=== PATIENT | male | born 1965 | race Caucasian/White ===

== ENCOUNTER 2025-03-22 08:29 | Inpatient (IN) | payer OTHER ==
[2025-03-22 08:59] VITALS: BMI 20.5
[2025-03-22] MEDS ORDERED: POLYETHYLENE GLYCOL (HEALTHYLAX) 3350 17 GM PACKET PO PRN (09:11)
[2025-03-22] MEDS ORDERED: IBUPROFEN 400 MG TABLET (FP) PO PRN (09:11)
[2025-03-22] MEDS ORDERED: LOPERAMIDE HCL 2 MG CAPSULE PO PRN (09:11)
[2025-03-22] MEDS ORDERED: MAGNESIUM HYDROX 2400MG/30ML ORAL SUSPENSION 30 ML CUP PO PRN (09:11)
[2025-03-22] MEDS ORDERED: BISMUTH SUBSALICYLATE 524 MG/30 ML PO PRN (09:11)
[2025-03-22] MEDS ORDERED: METHOCARBAMOL 500 MG TABLET PO PRN (09:11)
[2025-03-22] MEDS ORDERED: hydrOXYzine PAMOATE 25 MG CAPSULE (FP) PO PRN (09:11)
[2025-03-22] MEDS ORDERED: MAG HYDROX/AL HYDROX/SIMETH 30 ML UNIT-DOSE CUP PO PRN (09:11)
[2025-03-22] MEDS ORDERED: ACETAMINOPHEN 325 MG TABLET (FP) PO PRN (09:11)
[2025-03-22] MEDS ORDERED: DICYCLOMINE HCL 10 MG CAPSULE PO PRN (09:11)
[2025-03-22] MEDS ORDERED: ONDANSETRON *ODT* 4 MG TABLET SL PRN (09:11)
[2025-03-22] MEDS ORDERED: NALOXONE (NARCAN) HCL 4 MG/0.1 ML SPRAY NS PRN (09:11)
[2025-03-22] MEDS ORDERED: BENZOCAINE/MENTHOL (CHLORASEPTIC ) LOZENGE MM PRN (09:11)
[2025-03-22] MEDS ORDERED: BENZONATATE 200 MG CAPSULE PO PRN (09:11)
[2025-03-22] MEDS ORDERED: guaiFENesin 600 MG TABLET.ER (FP) PO PRN (09:11)
[2025-03-22] MEDS ORDERED: NICOTINE 14 MG/24 HOURS TOPICAL PATCH TD ONE (10:10)
[2025-03-22] MEDS ORDERED: PRENATAL VITAMINS W/ FOLIC ACID TABLET (FP) PO ONE (10:11)
[2025-03-22] MEDS: NICOTINE 14 MG/24 HOURS TOPICAL PATCH TD SCH (10:12)
[2025-03-22] MEDS: PRENATAL VITAMINS W/ FOLIC ACID TABLET (FP) PO SCH (10:12)
[2025-03-22] MEDS: PANTOPRAZOLE 20 MG TABLET PO SCH (11:00)
[2025-03-22] MEDS: NALTREXONE HCL 50 MG TABLET PO ONE (11:31)
[2025-03-22] MEDS: IBUPROFEN 600 MG TABLET (FP) PO PRN (17:56)
[2025-03-22] MEDS: MELATONIN 5 MG TABLETS PO SCH (22:07)
[2025-03-22] MEDS: THIAMINE 100 MG TABLET PO SCH (22:08)
[2025-03-23] MEDS: NALTREXONE HCL 50 MG TABLET PO SCH (10:30)
[2025-03-23 10:46] LABS: MCHC 33.4 g/dl (32.3-36.5); MEAN CELL VOLUME 103.1 fl (79.0-92.2); MEAN PLT VOLUME 10.0 fl (9.4-12.4); RDW 14.6 % (12.2-16.1)
[2025-03-23 10:59] LABS: GLUCOSE,RANDOM 109.0 mg/dL (74-106)
[2025-03-23 11:00] LABS: TOT PROT 6.4 g/dl (6.4-8.2)
[2025-03-23 11:01] LABS: CO2 29.0 mmol/L (21-32)
[2025-03-23 11:02] LABS: ALK PHOS 69.0 U/L (40-150)
[2025-03-23 11:05] LABS: CREATININE 0.77 mg/dL (0.55-1.3); SGOT/AST 36.0 U/L (5-34); SGPT/ALT 19.0 U/L (0-55)
[2025-03-23] MEDS: LACTULOSE 20 GM/30 ML UDC (FOR ORAL USE ONLY) PO SCH (14:45)
[2025-03-23] MEDS: THIAMINE 100 MG TABLET PO SCH (15:45)
[2025-03-24] MEDS: CYANOCOBALAMIN 1,000 MCG TABLET (FP) PO SCH (10:24)
[2025-03-26] MEDS: THIAMINE 100 MG TABLET PO SCH (22:26)
[2025-03-27 08:51] VITALS: BP 103/66; PULSE 74; RESP 16; TEMP 98.2
== END 2025-03-27 09:46 | disposition home or self-care (01) | DRG 774 ==
LOC: YASAS 08:29 → Y6N 10:09
PROVIDERS: ADMIT Allergy & Immunology; ATTEND Counselor Addiction (Substance Use Disorder)
PROC: HZ2ZZZZ Detoxification Services for Substance Abuse Treatment (ICD-10-PCS; principal; 2025-03-22)
DX: F10.230 Alcohol dependence with withdrawal, uncomplicated (principal); F14.20 Cocaine dependence, uncomplicated; F17.210 Nicotine dependence, cigarettes, uncomplicated; F25.9 Schizoaffective disorder, unspecified; F32.A Depression, unspecified; E72.20 Disorder of urea cycle metabolism, unspecified; K21.9 Gastro-esophageal reflux disease without esophagitis; Z85.850 Personal history of malignant neoplasm of thyroid
CPT/HCPCS: 36415; 80053; 80307; 82140; 83735; 85027; 86780; 93005; 93010